=== PATIENT | male | born 1995 | race Caucasian/White ===

== ENCOUNTER 2022-12-08 19:35 | Emergency (ER) | payer MEDICAID ==
[~2022-12-08] VITALS: Ht 182.9 cm; Wt 99.8 kg
[2022-12-08 19:42] VITALS: BP 128/68; PULSE 71; RESP 18; TEMP 98.3; O2SAT 99
== END 2022-12-08 22:54 | disposition home or self-care (01) ==
LOC: ER 19:36
DX: S93.691A Other sprain of right foot, initial encounter (principal); X58.XXXA Exposure to other specified factors, initial encounter; Y93.89 Activity, other specified; Y92.89 Other specified places as the place of occurrence of the external cause; Y99.8 Other external cause status
CPT/HCPCS: 73630; 99283